=== PATIENT | male | born 1965 | race Caucasian/White ===

== ENCOUNTER → 2019-04-28 | Outpatient (CLI) | payer OTHER | LOC: SPEECH 10:08 → RAD 10:08 | DX: R13.10 Dysphagia, unspecified (principal) ==

== ENCOUNTER 2019-08-22 15:41 | Emergency (ER) | payer OTHER ==
[~2019-08-22] VITALS: Ht 172.7 cm; Wt 81.7 kg
[2019-08-22] MEDS ORDERED: ATORVASTATIN CA80 MG PO (15:52)
[2019-08-22] MEDS ORDERED: ASA81BEC PO (15:52)
[2019-08-22] MEDS ORDERED: PLAVIX 75 MG TA75 MG PO (15:53)
[2019-08-22] MEDS ORDERED: STOOL SOFTENER100 MG PO (15:53)
[2019-08-22] MEDS ORDERED: CARVEDILOL3.125 MG PO (15:53)
[2019-08-22] MEDS ORDERED: TRAZODONE HCL100 MG PO (15:55)
[2019-08-22] MEDS ORDERED: DEPAKOTE SPRIN125 MG PO (15:56)
[2019-08-22] MEDS ORDERED: SEROQUEL 100 M100 MG PO (15:56)
[2019-08-22] MEDS ORDERED: ZESTRIL2.5 MG PO (15:56)
[2019-08-22] MEDS ORDERED: NEURONTIN300 MG PO (15:56)
[2019-08-22 16:28] VITALS: BP 110/72
== END 2019-08-22 18:09 | disposition home or self-care (01) ==
LOC: ER 15:41
DX: S01.01XA Laceration without foreign body of scalp, initial encounter (principal); G40.909 Epilepsy, unspecified, not intractable, without status epilepticus; F31.9 Bipolar disorder, unspecified; W05.0XXA Fall from non-moving wheelchair, initial encounter; Y93.89 Activity, other specified; Y92.89 Other specified places as the place of occurrence of the external cause; Y99.8 Other external cause status

== ENCOUNTER 2020-02-04 14:02 | Inpatient (IN) | payer OTHER ==
[2020-02-04] VITALS (13 sets, daily range): BP systolic 109–140; BP diastolic 67–82
[~2020-02-04] VITALS: Ht 167.6 cm; Wt 71.0 kg
--- NOTE | ~2020-02-04 | EMS ---
[facility] [address] [place] [address] EMS Patient Care Report Name: JOHAN BLACKWOOD Room #: PRE M.R.#: [id number] Admission: Attend Phys: Discharge: Date of : 61 Report #: [id number] THIS REPORT FOR: //name// Report Transmitted: 02/04/2020 13:48 EMS Care Summary [place], [place]/[facility] Incident [id number] @ 02/04/2020 13:21 Incident Location [address] [facility] Patient JOHAN BLACKWOOD Male, 54 Years 1965 Patient Address [address] [place] [id number] Patient History Bipolar II Disorder,Mild cognitive impairment, Chief Complaint AMS Disposition Transported No Lights/[place] Dispatch Reason Sick Person Transported To [facility] Narrative DISPATCHED FOR A SIC PERSON. UPON ARRIVAL ON SCENE, WE WERE DIRECTED TO A SIDE DOOR AT A FACILITY WHICH LET US IN TO THE "COVID UNIT." WE WERE THEN DIRECTED TO THE PT ROOM. STAFF INFORMED E THAT THEY BELEIVED THE PT WAS COVID POSITIVE BECAUSE HE HAD BEEN I THE COVID UNIT AND HAD A COUGH YESTERDAY, AND NOW HE "JUST ISN'T ACTING HIMSELF." STAFF EXPLAINED THE PT IS NORMALLY AOx4 AND ABLE TO WALK AROUND. PT WAS FUND LYING IN A RIGHT LATERAL POSITION ON THE FLOOR. IT WAS NOTED THERE WAS A NRB MASK ON PT FACE, NOT CONNECTED TO O2. PT MASK WAS CONNECTED TO OUR O2 IMMEDIATELY AT 15 LPM. PT WAS UNRESPONSIVE TO ALL STIMULI INITIALLY. IT WAS NOTED THE PT SKIN WAS PALE AND CLAMMY WITH DISTAL CYANOSIS. [facility] [address] [place] [address] EMS Patient Care Report Name: JOHAN BLACKWOOD Room #: PRE ER M.R.#: [id number] Admission: Attend Phys: Discharge: Date of : 61 Report #: [id number] PT WAS MOVED TO [facility] AND SECURED WITHOUT ISSUE. AFTER A SHORT WHILE, PT OXYGEN SATURATION IMPROVED WELL HIS SKIN COLOR, HE ALSO BECAME RESPONSIVE TO PAINFUL STIMLI. PTMOVED TO AMBULANCE WITHOUT ISSUE. DURING TX, I ADMINISTERED A NARCAN CHALLENGE DUE TO PT MENTAL STATUS, RESPIRATORY DISTRESS AND PINPOINT PUPILS. SHORTLY AFTER, PT RR INCREASED AND HE BECAME RESPONSIVE TO VOCAL STIMULI, OPENNG HIS EYES AND LOOKING AT ME WHEN I SPOKE TO HIM. HE ALSO BEGAN MOANING AND MAKING NOISE. UPON ARRIVAL AT ER, PT MOVED TO BED 12 WITHOUT INCIDENT. Initial Vitals @13:56BP: 109/75, @13:41P: 62,SpO2: 80, @13:48P: 90,R: 12,BP: 115/80,Pain: 4/10,GCS: 15,CO: 0,SpO2: 100,Revised Trauma: 12, @13:55P: 91,R: 14,BP: 112/72,Pain: 4/10,GCS: 15,SpO2: 100,Revised Trauma: 12, @13:51P: 90,R: 55,SpO2: 100, @13:56P: 90,R: 9, @13:43P: 80,R: 12,BP: 113/51,Pain: 4/10,GCS: 15,Temp: 100.1F,Glucose: 108,SpO2: 88,Revised Trauma: 12, @13:38P: 80,R: 10,Pain: 4/10,GCS: 15, Assessments @13:38MENTAL:Unresponsive,SKIN:Diaphoresis,Cyanotic,Pale,HEENT:Eyes: Left Pupil: 2-mm,Eyes: Right Pupil: 2-mm,Eyes: Right: Non-Reactive,Eyes: Left: Non-Reactive,Head/Face: No Abnormalities,Neck/Airway: No Abnormalities,LUNG SOUNDS:General: No Abnormalities,Left Upper: No Abnormalities,Right Upper: No Abnormalities,Left Lower: No Abnormalities,Right Lower: No Abnormalities,ABDOMEN:General: No Abnormalities,Left Upper: No Abnormalities,Right Upper: No Abnormalities,Left Lower: No Abnormalities,Right Lower: No Abnormalities,PELVIS//GI:Incontinence,Pelvis GUOther,EXTREMITIES:Right Arm: Other,Left Leg: Other,Right Leg: Other,Left Arm: Other,Capillary Refill: Left Upper: 5 Sec,PULSE:Radial: 2+ Normal,NEURO:No Abnormalities,@13:55MENTAL:SKIN:HEENT:Eyes: Left Pupil: 3-mm,Eyes: Right Pupil: 3-mm,Head/Face: No Abnormalities,Neck/Airway: No Abnormalities,LUNG SOUNDS:General: No Abnormalities,ABDOMEN:General: No Abnormalities,PELVIS//GI:Pelvis GUOther,Incontinence,EXTREMITIES:Capillary Refill: Right Upper: < 2 Sec,Left Arm: No Abnormalities,Right Arm: No Abnormalities,Left Leg: No Abnormalities,Right Leg: No Abnormalities,PULSE:Radial: 2+ Normal,NEURO:No Abnormalities, Impression Altered Mental Status Procedures @13:51Narcan - 2 Milligrams (mg) - IntranasalResponse: Improved@13:413-Lead ECGResponse: UnchangedSucceeded@13:39Oxygen FlowRate: 15 Device: Non [facility] [address] [place] [address] EMS Patient Care Report Name: JOHAN BLACKWOOD Room #: PRE Sergio.#: [id number] Admission: Attend Phys: Discharge: Date of : 61 Report #: [id number] Re-breather Mask (NRB) Response: UnchangedSucceeded@13:40StretcherResponse: Unchanged@13:38ALS AssessmentResponse: UnchangedSucceeded Timeline 13:18,Call Received 13:18,Dispatch Notified 13:21,Dispatched 13:24,En Route 13:28,On Scene 13:38,At Patient 13:38,ALS Assessment,Response: UnchangedSucceeded, 13:38,BP: / M,PULSE: 80,RR: 10 R,SPO2: Ox,ETCO2: ,BG: ,PAIN: 4,GCS: 15, 13:39,Oxygen FlowRate: 15 Device: Non Re-breather Mask (NRB) Response: UnchangedSucceeded, 13:40,Stretcher,Response: Unchanged 13:41,3-Lead ECG,Response: UnchangedSucceeded, 13:41,BP: / M,PULSE: 62,RR: R,SPO2: 80 Ox,ETCO2: ,BG: ,PAIN: ,GCS: , 13:43,BP: 113/51 M,PULSE: 80,RR: 12 R,SPO2: 88 Ox,ETCO2: ,B,PAIN: 4,GCS: 15, 13:47,Depart Scene 13:48,BP: 115/80 M,PULSE: 90,RR: 12 R,SPO2: 100 Ox,ETCO2: ,BG: ,PAIN: 4,GCS: 15, 13:51,Narcan - 2 Milligrams (mg) - Intranasal,Response: Improved 13:51,BP: / M,PULSE: 90,RR: 55 R,SPO2: 100 Ox,ETCO2: ,BG: ,PAIN: ,GCS: , 13:55,BP: 112/72 M,PULSE: 91,RR: 14 R,SPO2: 100 Ox,ETCO2: ,BG: ,PAIN: 4,GCS: 15, 13:56,BP: / M,PULSE: 90,RR: 9 R,SPO2: Ox,ETCO2: ,BG: ,PAIN: ,GCS: , 13:56,BP: 109/75 M,PULSE: ,RR: R,SPO2: Ox,ETCO2: ,BG: ,PAIN: ,GCS: , 13:56,At Destination 14:10,Call Closed Disclaimer v1.1 Copyright 2020 [employer] This EMS Care Summary contains data elements from the applicable legal record (which may be displayed differently). It is designed to provide pertinent information for the following purposes: continuity of care, clinical quality, and state data reporting. The complete legal record is available to ED staff and administrators of the receiving hospital in [employer]'s Patient Tracker. All data is provided "as is."
[~2020-02-04 14:02] MED LIST: ASA81BEC PO; ATORVASTATIN CA80 MG PO; CARVEDILOL3.125 MG PO; DEPAKOTE SPRIN125 MG PO; NEURONTIN300 MG PO; PLAVIX 75 MG TA75 MG PO; SEROQUEL 100 M100 MG PO; STOOL SOFTENER100 MG PO; TRAZODONE HCL100 MG PO; ZESTRIL2.5 MG PO
[2020-02-04 14:42] LABS: HCO3 29.8 mmol/L (22.0-26.0); PCO2 36.4 mmHg (35.0-45.0); PO2 49.9 mmHg (80.0-100.0); pH 7.531 (7.360-7.450); sO2 89.5 % (92.0-98.0)
--- NOTE | 2020-02-04 15:51 | EKG ---
[facility] [address] ELECTROCARDIOGRAM REPORT Name: JOHAN BLACKWOOD Room #: [facility].#: [id number] Admission: 02/04/20 Attend Phys: Discharge: Date of : 61 Report #: [id number] THIS REPORT FOR: cc: Jewel Paul Eric DO Couchonnal, Luis F. MD ~ THIS REPORT FOR: //name// [facility] ED Test Date: 2020-02-04 Test Time: 15:35:47 Pat Name: JOHAN BLACKWOOD Department: Room: Gender: Dormitory Maid: [facility] : 1965 Requested By: Shoaib Guardado Order Number: [id number] MD: Gustabo Warner Measurements Intervals [place] Rate: 97 P: 54 MS: 119 QRS: 47 QRSD: 79 T: 4 QT: 314 QTc: 399 Interpretive Statements Sinus rhythm Borderline short MS interval Minimal ST depression, diffuse leads Baseline wander in lead(s) V3,V4 No previous ECG available for comparison Electronically Signed On 02-04-2020 15:51:10 CDT by Gustabo Warner [email or web address] <ELECTRONICALLY SIGNED> By: Gustabo Warner MD 02/04/20 1551 1535 1535 Gustabo Warner MD /EPI
[2020-02-04] MEDS ORDERED: NON-ASPIRIN325 MG PO (16:39)
[2020-02-04] MEDS ORDERED: MILK OF MA400 MG/5 M PO (16:40)
[2020-02-04 16:48] LABS: ABSOLUTE NEUTROPHILS 7.8 thou/uL (1.4-8.2); BASOPHILS 0.3 % (0.0-2.0); HEMATOCRIT 48.3 % (42.0-52.0); HEMOGLOBIN 15.8 gm/dL (14.0-18.0); LYMPHOCYTES 6.1 % (24.0-44.0); MCH 30.7 pg (26.0-34.0); MCHC 32.7 g/dL (28.0-37.0); MCV 93.9 fL (80.0-100.0); MONOCYTES 5.6 % (1.0-8.0); RBC 5.14 mil/uL (4.50-6.00); RDW 15.1 % (10.5-14.5); WBC 8.9 thou/uL (4.0-11.0)
[2020-02-04 16:57] LABS: ANION GAP 10 mmol/L (7-16); BUN 42 mg/dL (7-18); CALCIUM 8.6 mg/dL (8.5-10.1); CHLORIDE 111 mmol/L (98-107); CO2 31 mmol/L (21-32); CREATININE 1.4 mg/dL (0.7-1.3); GLUCOSE 108 mg/dL (74-106); POTASSIUM 4.4 mmol/L (3.5-5.1); SODIUM 152 mmol/L (136-145)
[2020-02-04 17:10] LABS: D-DIMER 2.55 ug/mLFEU (0.19-0.50); FIBRINOGEN 488.2 mg/dL (210-360)
[2020-02-04 17:12] LABS: ALBUMIN 3.1 g/dL (3.4-5.0); DIRECT BILIRUBIN 0.3 mg/dL (<0.1-0.2); SGOT 100 U/L (15-37); SGPT 47 U/L (30-65); TOTAL BILIRUBIN 0.8 mg/dL (0.2-1.0); TOTAL PROTEIN 8.9 g/dL (6.4-8.2); TROPONIN-I <0.06 ng/mL (<0.06)
[2020-02-04 17:23] LABS: PLATELET COUNT 77 thou/uL (150-400); PLATELET ESTIMATE DECREASED
--- NOTE | 2020-02-04 20:57 | NUR ---
PT ARRIVED IN ICU AT 1800, INTUBATED AND SEDATED ON PROPOFOL. SEDATION WAS TURNED OFF TO DETERMINE NEUROLOGIC STATUS. PT IS OBTUNDED, DOES NOT RESPOND TO PAINFUL STIMULI. REPORT WAS GIVEN THAT PT WAS A GCS OF 7 BUT ON MY ADMISSION ASSESSMENT HE WAS SCORED AT A 3. MERCHANDISING PROFESSOR WAS ASKED TO CALL [employer].PROPOFOL WAS NOT RESTARTED. PT DOES HAVE POSITIVE COUGH/GAG/CORNEAL. CONTINUES TO RIDE VENT. HEMODYNAMICALLY STABLE. SKIN IS MOTTLED, WITH MULTIPLE BRUISES AND SCABS ACROSS BODY. PT EDUCATED ON CONDITION AND POC.
[2020-02-04 21:57] LABS: BE(vivo) 2.4 mmol/L (-2 to +3); PCO2 29.7 mmHg (35.0-45.0); PO2 144.2 mmHg (80.0-100.0); pH 7.526 (7.360-7.450); sO2 99.1 % (92.0-98.0)
[2020-02-05] VITALS (27 sets, daily range): BP systolic 85–118; BP diastolic 51–77
[2020-02-05 05:46] LABS: BE(vivo) -0.9 mmol/L (-2 to +3); HCO3 22.9 mmol/L (22.0-26.0); PCO2 35.6 mmHg (35.0-45.0); pH 7.426 (7.360-7.450); sO2 82.6 % (92.0-98.0)
[2020-02-05 05:47] LABS: PO2 45.2 mmHg (80.0-100.0)
[2020-02-05 06:05] LABS: BE(vivo) 2.9 mmol/L (-2 to +3); HCO3 27.4 mmol/L (22.0-26.0); PCO2 41.3 mmHg (35.0-45.0); PO2 78.3 mmHg (80.0-100.0); pH 7.439 (7.360-7.450)
[2020-02-05 06:18] LABS: ABSOLUTE NEUTROPHILS 8.4 thou/uL (1.4-8.2); BASOPHILS 0.1 % (0.0-2.0); HEMATOCRIT 45.4 % (42.0-52.0); HEMOGLOBIN 14.8 gm/dL (14.0-18.0); LYMPHOCYTES 7.7 % (24.0-44.0); MCH 30.7 pg (26.0-34.0); MCHC 32.5 g/dL (28.0-37.0); MCV 94.3 fL (80.0-100.0); MONOCYTES 7.5 % (1.0-8.0); PLATELET COUNT 66 thou/uL (150-400); POLYS 84.7 % (36.0-66.0); RBC 4.81 mil/uL (4.50-6.00); RDW 15.3 % (10.5-14.5); WBC 9.9 thou/uL (4.0-11.0)
[2020-02-05 06:58] LABS: CALCIUM 8.5 mg/dL (8.5-10.1); CREATININE 1.4 mg/dL (0.7-1.3); MAGNESIUM 2.8 mg/dL (1.8-2.4); POTASSIUM 3.7 mmol/L (3.5-5.1)
--- NOTE | 2020-02-05 08:05 | NUR ---
Assumed care at 1900. Pt initiatlly unresponsive, but with positive cough/gag. No sedation while on vent until about midnight when he became minimally responsive, but not agitated or moving extremities. By 0200 pt reaching for ETT and coughing against vent. Propofol gtt started and requiring 15 mcg/kg/min to tolerate vent. Rapid COVID positive, Dr. Castro and pt's sister notified. Pt's sister tearful and unsure of how to proceed with pt's care as he has been depressed and "tired" and is ready to "be with his mom". Emotional support given and offered to do facetime call. Assessments per documentation. Slowly progressing at this time.
[2020-02-05 10:09] LABS: URINE BILIRUBIN NEGATIVE (Negative); URINE BLOOD 1+ (Negative); URINE CLARITY CLEAR; URINE COLOR YELLOW; URINE GLUCOSE-RANDOM* NEGATIVE (Negative); URINE KETONES NEGATIVE (Negative); URINE LEUKOCYTES-REFLEX NEGATIVE (Negative); URINE NITRITE-REFLEX NEGATIVE (Negative); URINE PROTEIN (DIPSTICK) TRACE (Negative); URINE SPECIFIC GRAVITY 1.025 (1.005-1.035)
[2020-02-05 10:24] LABS: BACTERIA-REFLEX None Seen /HPF (None Seen); CRYSTALS None Seen /LPF (None Seen); SQUAMOUS 0-3 Few /LPF (0-3); URINE WBC-REFLEX None Seen /HPF (0-5)
--- NOTE | 2020-02-05 10:34 | NUR ---
Nutrition: REC initiate tube feeds due to NPO status day 2 on vent. REC start Vital HP to reach 55 mL/hr with current propofol demands.
--- NOTE | 2020-02-05 10:44 | NUR ---
chart review. unable to visit wit pt rt intubated, positive for covid. pt is from ltc at [facility]. pt has meals there, assistance with medication and adl's if needed. update provided to [facility] via phone call to don at [facility]. will cont following as needed for dc needs.
--- NOTE | 2020-02-05 11:43 | NUR ---
SPOKE WITH PATIENT'S SISTER/DPOA REGARDING UPDATE. FAMILY HAD QUESTIONS REGARDING DNR VS WITHDRAWAL OF PT CARE. REQUESTED DNR FOR PT AND CONSULT WITH PALLIATIVE CARE/HOSPICE PROVIDER. PHYSICIAN NOTIFIED OF FAMILY REQUESTS. PT FAMILY PLAN TO DISCUSS OPTIONS FOR PT AND NOTIFY HOSPITAL STAFF.
--- NOTE | 2020-02-05 16:17 | NUR ---
RISK, BENEFITS, AND ALTERNATIVE TREATMENT DISCUSSED WITH DPOA. TEACHING GIVEN RELATED TO POSSIBLE COMPLICATIONS SUCH BLEEDING, INFECTION, CLOT, OR VESSEL PERFORATION. INSTRUCTION GIVEN RELATED TO CLABSI PREVENTION WITH LITERATURE PROVIDED. DPOA VOICES UNDERSTANDING AND CONSENT OBTAINED. [facility] TRIPLE LUMEN CENTRAL LINE CATHETER PLACED TO [facility]. ONE STICK AND NO COMPLICATIONS. PATIENT TOLERATED WELL. TIP OF CENTRAL CATHETER VERIFIED DISTAL SVC PER CHEST XRAY. RN ALEX FARIA RN NOTIFIED OKAY TO USE. LENGHT OF CATHETER =25CM. EXTERNAL =7CM. V.O.=14%.
[2020-02-06] VITALS (25 sets, daily range): BP systolic 85–122; BP diastolic 45–78
[2020-02-06 04:06] LABS: GLYCOHEMOGLOBIN (HGB A1C) 5.6 % (4.8-5.6)
[2020-02-06 05:36] LABS: CALCIUM 8.6 mg/dL (8.5-10.1); POTASSIUM 4.4 mmol/L (3.5-5.1)
[2020-02-06 05:44] LABS: CREATININE 3.7 mg/dL (0.7-1.3)
--- NOTE | 2020-02-06 07:22 | NUR ---
ASSESSMENT DOCUMENTED.PT REMAINS INTUBATED AND MODERATELY SEDATED,TOLERATING.BLOOD PRESSURE SOFT WITH MAP>60.IVF ORDERED.PT MOVES EXTREMITIES BILATERALLY AT TIMES.NO SIGNS OF DISTRESS NOTED.FIGUEROA DD DARK YELLOW CLOUDY URINE.FAIR AMOUT OF UO.POC IS DISCUSS WITH FAMILY ABOUT PALLIATIVE CARE TODAY.WILL CONT TO MONITOR PER POC.
--- NOTE | 2020-02-06 14:32 | NUR ---
cont to be intubated, tube feeding for nutritional support. from [facility] for rehabilitation. no anticipated dc over the weekend. will cont following as needed for dc needs.
[2020-02-06 16:00] LABS: BE(vivo) 3.2 mmol/L (-2 to +3); HCO3 27.8 mmol/L (22.0-26.0); PCO2 42.4 mmHg (35.0-45.0); PO2 109.1 mmHg (80.0-100.0); pH 7.435 (7.360-7.450); sO2 98.1 % (92.0-98.0)
--- NOTE | 2020-02-06 16:01 | NUR ---
ASSUMED CARE AT 0700. CENTRAL LINE DRESSING CHANGED. CPAP TRIAL STARTED @ 1500. PATIENT LASTED 45 MINUTES PER RESPIRATORY. HAD DECREASED MINUTE VENTILATION. SPOKE TO SISTER AND UPDATED AND EDUCATED HER ON PATIENT'S CONDITION. NO DECISION HAS BEEN MADE REGARDING PALLIATIVE CARE. PATIENT MOVES ALL EXTREMITIES, COUGHS AND GAGS, GRIMACES TO PAIN, AND DOES NOT FOLLOW COMMANDS. SEDATION VACATION RESULTED IN TACHYPNEA, RESTLESSNESS, AND AGITATION IN PATIENT. VENTILATOR SETTINGS UNCHANGED. RESTRAINTS CHECKED. PATIENT AND FAMILY UPDATED AND EDUCATED ON PLAN OF CARE. PATIENT PROGRESSING TOWARDS THE PLAN OF CARE. AFEBRILE. NO BM. UOP ADEQUATE HOWEVER IT IS TEA-COLORED/RED WITH SEDIMENT AND CLOTS PRESENT.
[2020-02-07] VITALS (23 sets, daily range): BP systolic 96–147; BP diastolic 59–89
--- NOTE | 2020-02-07 05:29 | NUR ---
ASSESSMENT DOCUMENTED.PT REMAINS ON VENT.ON LIGHT SEDATION.PT MOVES VIMAL EXTREMITIES BILATERALLY INTERMITTENTLY.RESPONDS TO PAINFUL STIMULI.AFEBRILE.SINUS JOEY ON SUPERVISOR SHRIMP POND.VSS.FIGUEROA DD,CLOUDY URINE W/SEDIMENTS.IVF PER ORDERS.SISTER CALLED LAST NOC, UPDATED WITH PT STATUS/POC.NO CONCERNS WERE VOICED.WILL CONT WITH POC.
[2020-02-07 05:52] LABS: HEMATOCRIT 38.9 % (42.0-52.0); MCH 30.7 pg (26.0-34.0); MCHC 33.3 g/dL (28.0-37.0); MCV 92.2 fL (80.0-100.0); RBC 4.22 mil/uL (4.50-6.00); RDW 14.9 % (10.5-14.5); WBC 7.7 thou/uL (4.0-11.0)
[2020-02-07 05:54] LABS: CALCIUM 7.8 mg/dL (8.5-10.1); POTASSIUM 3.5 mmol/L (3.5-5.1)
--- NOTE | 2020-02-07 10:06 | NUR ---
ASSUMED CARE AT 0700, ASSESSMENT AND VITAL SIGNS COMPLETED PER ICU PROTOCOL. RN WILL CONTINUE TO MONITOR AND FOLLOW POC.
[2020-02-08] VITALS (23 sets, daily range): BP systolic 109–145; BP diastolic 52–96
--- NOTE | 2020-02-08 02:58 | NUR ---
PT REMAINS ON PROPOFOL DRIP. AWAKENS BRIEFLY WITH TURNS AND BATH THEN BACK TO SLEEP QUICKLY. VSS. AFEBRILE. RESPIRATIONS UNLABORED ON CURRENT VENTILATOR SETTINGS. BS COARSE AT BASES. SUCTIONING MODERATE AMTS OF PICKARD COLORED SPUTUM. UO WNL BUT URINE IS PINK TINGED WITH SEDIMENT NOTED. CONTINUING ABX. ORDERED. IV FLUIDS INFUSING WITHOUT DIFFICULTY TO RIJ. CENTRAL LINE DRESSING CHANGED DUE TO DRESSING CAME LOOSE.REPOSITIONING PT Q 2 HRS. NO SKIN BREAKDOWN NOTED. WILL CONTINUE TO MONITOR PT FOR CHANGES.
[2020-02-08 06:18] LABS: HEMATOCRIT 40.9 % (42.0-52.0); HEMOGLOBIN 13.5 gm/dL (14.0-18.0); MCH 30.4 pg (26.0-34.0); MCV 92.1 fL (80.0-100.0); RBC 4.44 mil/uL (4.50-6.00); RDW 14.8 % (10.5-14.5); WBC 13.8 thou/uL (4.0-11.0)
[2020-02-08 06:38] LABS: CALCIUM 7.6 mg/dL (8.5-10.1); CREATININE 0.9 mg/dL (0.7-1.3); POTASSIUM 3.4 mmol/L (3.5-5.1)
--- NOTE | 2020-02-08 07:03 | NUR ---
PT TOLERATING FIO2 AT 40%N VENTILATOR. NO S/S DISTRESS PRESENTLY.
--- NOTE | 2020-02-08 09:36 | NUR ---
ASSUMED CARE AT 0700, ASSESSMENT AND VITAL SIGNS COMPLETED PER ICU PROTOCOL. RN WILL CONTINUE TO MONITOR.
[2020-02-09] VITALS (15 sets, daily range): BP systolic 83–135; BP diastolic 45–85
[2020-02-09 07:18] LABS: HEMATOCRIT 40.3 % (42.0-52.0); HEMOGLOBIN 13.2 gm/dL (14.0-18.0); MCH 30.4 pg (26.0-34.0); MCHC 32.8 g/dL (28.0-37.0); MCV 92.7 fL (80.0-100.0); RBC 4.35 mil/uL (4.50-6.00); RDW 14.6 % (10.5-14.5); WBC 13.5 thou/uL (4.0-11.0)
[2020-02-09 07:45] LABS: CREATININE 0.8 mg/dL (0.7-1.3); POTASSIUM 3.4 mmol/L (3.5-5.1)
--- NOTE | 2020-02-09 08:20 | NUR ---
Pt will awaken with sedation vacation, does not follow commands, raises hands to ett. Will not open eyes, grimaces with oral care and suctioning. 02sat wnl. ls -diminished. no resp distress. Cpap trial this am. progressing toward goals
[2020-02-09 08:46] LABS: BE(vivo) 2.8 mmol/L (-2 to +3); HCO3 25.5 mmol/L (22.0-26.0); PCO2 33.1 mmHg (35.0-45.0); PO2 133.5 mmHg (80.0-100.0); pH 7.504 (7.360-7.450); sO2 98.9 % (92.0-98.0)
--- NOTE | 2020-02-09 11:47 | NUR ---
ASSUMED CARE OF PT AT 0645. PLAN FOR CPAP AND POSSIBLE EXTUBATION. CPAP AT 0745. PROPOFOL OFF AT 0900. EXTUBATE AT 1150. DC RESTRAINTS
[2020-02-10] VITALS (7 sets, daily range): BP systolic 85–104; BP diastolic 38–71
--- NOTE | 2020-02-10 08:00 | NUR ---
PT SLEPT OFF AND ON. RESTLESS WHEN AWAKE WORKING TO REMOVE MEDICAL EQUIPMENT. SPOT CHECK 02SAT -93% ON RA. CONGESTED COUGH.QUESTIONABLE SLEEP APNEA WHILE SLEEPIN PER MONITOR BRADYCARIA, ET LOW HR. AWAKENS SELF AND VITALS RETURN TO WNL. CONT PLAN OF CARE.PROGRESSING TOWARD GOALS. NO RESTRAINTS PLACED DESPITE REMOVING THERAPIES NOT TO INCREASE AGITATION. WILL SPEAK DR IN REGARDD TO HOME MEDS
[2020-02-10 08:02] LABS: HEMATOCRIT 34.5 % (42.0-52.0); HEMOGLOBIN 11.5 gm/dL (14.0-18.0); MCH 30.5 pg (26.0-34.0); MCHC 33.4 g/dL (28.0-37.0); MCV 91.5 fL (80.0-100.0); RBC 3.77 mil/uL (4.50-6.00); RDW 14.6 % (10.5-14.5); WBC 11.7 thou/uL (4.0-11.0)
[2020-02-10 08:05] LABS: CALCIUM 7.9 mg/dL (8.5-10.1); CREATININE 0.8 mg/dL (0.7-1.3); POTASSIUM 3.4 mmol/L (3.5-5.1)
--- NOTE | 2020-02-10 09:39 | NUR ---
INSTRUCT PT TO BE TRANSFERRED TO [address] [place] [address] MED/SURG ENHANCED ISOLATION PRECAUTIONS.
--- NOTE | 2020-02-10 10:49 | NUR ---
noted per chart, pt extubated yesterday. o2 3Lnc. possible able to transfer out of icu. will cont following as needed for dc needs. [facility] to be updated today by cm team.
--- NOTE | 2020-02-10 17:52 | NUR ---
PT WILL HAVE SWALLOW EVALUATION IN AM. DR. LORA TO START PSYCH MEDICATION THIS EVENING. PT CONTINUES TO TRY AND TAKE OXYGEN AND BLOOD PRESSURE CUFF OFF. PT SATING 92% ON RA. PT PROGRESSING TOWARDS GOALS.
--- NOTE | 2020-02-10 18:48 | NUR ---
ASSESS SWALLOWING. PT ABLE TO TOLERATE CRUSHED UP PILLS IN THICKENED CLEAR LIQUID. GAVE PT PSYCH MEDICATION EARLY PATIENT WAS GETTING RESTLESS.
[2020-02-11] VITALS (13 sets, daily range): BP systolic 95–128; BP diastolic 25–84
--- NOTE | 2020-02-11 05:34 | NUR ---
ASSESSMENT DOCUMENTED.PT RESTED WELL THROUGH THE NIGHT W/O ACUTE DISTRESS.PT AWAKE,MAKES INCOMPREHENSIBLE SOUNDS AND YELLS DURING CARE.SINUS JOEY ON THE MONITOR.ON O2 AT 2LITERS PNC,SATS>92%.FIGUEROA DD LARGE AMOUNT OF URINE/W SEDIMENT.TOLERATED BED BATH.ORAL CARE GIVEN.POC IS TO TRANSFER TO [facility].
--- NOTE | 2020-02-11 11:22 | NUR ---
Nutrition: Pt without nutrition x [address] eval post extubation. REC either Dobhoff placement and start Jevity 1.5 goal 55 mL/hr OR change IVFs to Clinimix PPN at 100 mL/hr, add 250 mL 20% lipids daily til diet advance possible.
--- NOTE | 2020-02-11 16:08 | NUR ---
FAXED CLINICAL UPDATE TO [facility] RECEIVED CONFIRMATION AND LEFT MSG WITH ADM. DP TO FOLLOW.
--- NOTE | 2020-02-12 01:21 | NUR ---
PT MOVES SELF IN BED FROM SIDE TO SIDE. HAPPY TO SEE STAFF, SMILING. NO DISCERNABLE WORDS. AFEBRILE.02SAT 100 ON 2L. GOOD COUGH EFFORT; DID TAKE CRUSHED PILLS WITH APPLESAUCE. NO COUGH NOTED. UO ADEQUATE. STARTED TPN PER ORDERS THIS SHIFT. SPOKE WITH PT SISTER LAST EVENING WITH UPDATE. CONT TO PROGRESS. CONT PLAN OF CARE
[2020-02-12 03:50] VITALS: BP 111/56
--- NOTE | 2020-02-12 04:07 | NUR ---
TRANSFER PT TO [facility], NO CHANGE IN ASSESSMENT. REPORT CALLED TO RN.
[2020-02-12 07:32] VITALS: BP 121/67
[2020-02-12 09:44] LABS: HEMATOCRIT 35.3 % (42.0-52.0); MCH 30.8 pg (26.0-34.0); MCHC 33.9 g/dL (28.0-37.0); MCV 90.7 fL (80.0-100.0); RBC 3.89 mil/uL (4.50-6.00); RDW 14.4 % (10.5-14.5); WBC 8.4 thou/uL (4.0-11.0)
[2020-02-12 09:53] LABS: CALCIUM 7.8 mg/dL (8.5-10.1); CREATININE 0.8 mg/dL (0.7-1.3)
--- NOTE | 2020-02-12 14:29 | NUR ---
ALICIA reviewed chart and spoke with nursing and attending physician. Pt was transferred to from ICU and is in Enhanced Isolation due to COVID-19. Pt is afebrile and on 2L of O2. Pt is on IV abx and IV steroids. ST ordered to evaluate pt. Pt would benefit from PT/OT evals when able to participate. Pt was admitted from [facility]. Pt with hx of bipolar disorder, dementia, CVA, epilepsy. SW placed call to pt's room. No answer. ALICIA spoke with pt's sister, Sonia, via phone. Introduced role of SW. Sonia states that pt has lived at [facility] for about a year. Pt is long filler cigar roller machine care, as he [place]. Pt is normally independent with ambulation. Pt does have a w/c at [facility] for staff to use to transport pt if needed. Pt was in a facility in [place] prior to moving to [facility]. Pt's sister states that prior to COVID-19 pandemic, she was taking pt home with her over the weekends to spend time with family. Family has tried to Face Time pt at [facility], but has had difficulty arranging the Face Time visits. SW explained that has a tablet and can assist with coordination if needed. Pt's sister states that she does not want pt to return to [facility] upon discharge. Pt's family is not happy with the level of care they are providing and the lack of communication. Pt's family feel that they are able to manage pt's care needs in the home setting. Pt has good family support and would be able to take care of pt. ALICIA discussed isolation precautions should pt continue to test positive, as well as in-home care provided by [place]. Pt's sister to discuss with Medicaid about having pt evaluated for in-home care. Pt's disability check goes to the facility. Pt's sister also interested in possible inpt acute rehab prior to returning to the home setting if pt able to be admitted pending COVID status. Pt's sister has discussed her concerns with [facility]. Pt's sister will further discuss discharge plan with family and will see pt's level of care needs when it gets closer to discharge. ALICIA is following to assist as needed with discharge planning.
[2020-02-12 16:25] VITALS: BP 103/67
[2020-02-12 19:15] VITALS: BP 97/51
--- NOTE | 2020-02-12 19:34 | NUR ---
PT RESTED IN ROOM THROUGH THE DAY. HE DOES NOT SEEM TO BE IN PAIN. CONT ON ABT AND NO ADVERSE EFFECTS NOTED. RESPIRATIONS ARE NON LABORED. FIGUEROA IN PLACE. WILL CONT WITH PLAN OF CARE.
[2020-02-13 05:43] VITALS: BP 100/50
[2020-02-13 06:35] LABS: HEMATOCRIT 36.7 % (42.0-52.0); HEMOGLOBIN 12.2 gm/dL (14.0-18.0); MCH 30.6 pg (26.0-34.0); MCHC 33.4 g/dL (28.0-37.0); MCV 91.6 fL (80.0-100.0); RDW 15.2 % (10.5-14.5); WBC 10.8 thou/uL (4.0-11.0)
[2020-02-13 06:40] LABS: CALCIUM 7.7 mg/dL (8.5-10.1); CREATININE 0.8 mg/dL (0.7-1.3); MAGNESIUM 1.9 mg/dL (1.8-2.4); POTASSIUM 3.5 mmol/L (3.5-5.1)
--- NOTE | 2020-02-13 08:32 | NUR ---
PPN providing minimal nutrition. If aggressive care to continue for nutrition recommend placement of dobhoff and start TF of jevity 1.5 at goal 55ml/hr
[2020-02-13 10:52] VITALS: BP 97/63
[2020-02-13 10:59] LABS: BE(vivo) 2.6 mmol/L (-2 to +3); HCO3 24.1 mmol/L (22.0-26.0); PCO2 28.6 mmHg (35.0-45.0); PO2 62.7 mmHg (80.0-100.0); pH 7.543 (7.360-7.450); sO2 94.7 % (92.0-98.0)
[2020-02-13 14:11] LABS: ALBUMIN 1.8 g/dL (3.4-5.0); DIRECT BILIRUBIN 0.1 mg/dL (<0.1-0.2); TOTAL BILIRUBIN 0.5 mg/dL (0.2-1.0); TOTAL PROTEIN 5.9 g/dL (6.4-8.2)
--- NOTE | 2020-02-13 14:45 | NUR ---
SW reviewed chart and spoke with nursing. Pt is in Enhanced isolation due to COVID-19. Code Stroke called earlier today. Neuro consulted. Pt was unresponsive. No weekend discharge planned. Therapy to be ordered when pt is able to participate. SW is following to assist as needed with discharge planning.
--- NOTE | 2020-02-13 18:29 | NUR ---
PATIENT WAS NOTED TO BE LETHERGIC THIS AM. CODE STROKE ACTIVATED BUT WORK UP DID NOT SHOW HE HAD ANY STROKE. LATER THIS AFTERNOON PATIENT BEGAN TO WAKE UP AND BEGAN TO MOVE IN BED PER HIS USUAL SELF. OXYGEN SATS REMAINS GOOD AT ROOM AIR. WILL CONT WITH PLAN OF CARE.
[2020-02-13 20:25] VITALS: BP 122/77
--- NOTE | 2020-02-14 02:11 | NUR ---
ASSUMED CARE OF PT FROM DAY SHIFT , PT VERY RESTLESS AND AGITATED , LEG WERE BEDRAIL , HOSPITAL GOWN OFF. LINEN CHANGES AND ANISA CARE GIVEN PT REPOSTION IN BED, BED ALARM ON. WILL CONINTUE TO MONITOR AND REPORT CHANGES. FIGUEROA INTACT WITH CLEAR YELLOW URINE.
[2020-02-14 03:45] VITALS: BP 112/81
[2020-02-14 08:53] VITALS: BP 1408/67
[2020-02-14 13:26] LABS: TSH 1.288 uIU/mL (0.358-3.740)
[2020-02-14 15:18] VITALS: BP 106/74
--- NOTE | 2020-02-14 19:33 | NUR ---
PATIENT HAD A BED TODAY AFTER HAVING EXTENSIVE BOWEL MOVEMENT. HE IS MUCH MORE AWAKE. ATE DINNER 75% WITH MINOR FATIGUE NOTED. HE KEEPS MOVING ABOUT IN BED. WILL CONT WITH PLAN OF CARE.
[2020-02-15 04:01] VITALS: BP 128/65
--- NOTE | 2020-02-15 04:34 | NUR ---
VSS-AFEBRILE. AWAKE AND RESTLESS MOST OF SHIFT. TURNED AND ORAL CARE EVERY TWO HOURS FOR COMFORT. FIGUEROA CATHETER DRAINING ADEQUATE AMOUNTS OF DARK, YELLOW URINE TO DEPENDENT DRAINAGE BAG. REMAINS ON ROOM AIR WITH SAO2 >92%. CAN BE IMPULSIVE AND PULL ON IV LINES, WAS ABLE TO PLACE PILLOWS AND BLANKETS OVER LINES TO PREVENT ANY PULLING. FALL PRECAUTIONS IN PLACE.
[2020-02-15 08:30] VITALS: BP 108/56
[2020-02-15 15:28] VITALS: BP 111/74
--- NOTE | 2020-02-15 18:30 | NUR ---
ASSUMED PATIENT CARE AT 0700. AWAKE. NONVERBLE. ABLE TO HAVE 50-60% EACH MEALS. AFEBEILR. VSS. PROGRESSING TOWARDS POC GOALS.
[2020-02-15 20:18] VITALS: BP 132/81
[2020-02-16 00:37] VITALS: BP 104/66
--- NOTE | 2020-02-16 00:47 | NUR ---
PT CONFUSED. VSS AFEBRILE. PT PULLED OU IV 3LRIJ AROUND 2350. WILL NOTIFY DR. PT HAS BEEN EATING WELL ON DAY SHIFT ACCORDING TO REPORT. BED DOWN CALLLIGHT IN REACH. BED ALARM ON.
--- NOTE | 2020-02-16 02:24 | NUR ---
NOTIFIED MAGGY LEZAMA FORESTRY TECHNICAL OFFICER PT PULLED OUT CENTRAL LINE. PLACED IN SOFT WRIST RESTAINTS DUE TO HE BEGAN TOO DISROBE AND PULL AT FIGUEROA.
--- NOTE | 2020-02-16 06:21 | NUR ---
PT STILL CONFUSED. PULLS AT LINES. SAMSNO ROLLINS PUT IN A REQUEST FOR PICC LINE PLACEMENT TODAY SO PT CAN CONTINUE PPN. NYSTATIN ORDERED FOR GROIN RASH.
[2020-02-16 08:00] VITALS: BP 133/77
[2020-02-16 09:37] LABS: HEMATOCRIT 40.4 % (42.0-52.0); HEMOGLOBIN 13.3 gm/dL (14.0-18.0); MCH 30.3 pg (26.0-34.0); MCV 91.8 fL (80.0-100.0); RBC 4.4 mil/uL (4.50-6.00); RDW 14.5 % (10.5-14.5); WBC 11.1 thou/uL (4.0-11.0)
[2020-02-16 10:01] LABS: CALCIUM 8.6 mg/dL (8.5-10.1); CREATININE 0.8 mg/dL (0.7-1.3); MAGNESIUM 2.1 mg/dL (1.8-2.4); POTASSIUM 3.9 mmol/L (3.5-5.1)
--- NOTE | 2020-02-16 15:15 | NUR ---
ALICIA reviewed chart and spoke with nursing and attending physician. Pt is in Enhanced Isolation due to COVID-19. Pt is afebrile and not requiring O2. PT/OT ordered today to evaluate pt. Pt is on a pureed diet and nectar thickened liquids. ALICIA spoke with pt's sister, Sonia, via phone to discuss discharge plan. Code Stroke called on Sunday, 02/12. Neurology consulted. Pt was not able to follow commands with OT this morning. Awaiting PT eval. ALICIA explained the level of care that pt is requiring at this time. Pt's sister does not want pt to return to [facility]. She will take him home if needed. ALICIA discussed alternate option for LTC placement: [facility]. Pt's sister to review the facility's website and survey ratings. ALICIA updated attending physician. ALICIA is following to assist as needed with discharge planning.
[2020-02-16 16:19] VITALS: BP 126/72
--- NOTE | 2020-02-16 17:44 | NUR ---
ASSUMED PATIENT CARE AT 0700. AWAKE, NOT FOLLOW COMMAND. RESTLESS. GOOD APPETITE. PROGRESSING TOWARDS POC GOALS.
[2020-02-16 19:38] VITALS: BP 179/70
[2020-02-16 21:47] VITALS: BP 122/75
--- NOTE | 2020-02-16 23:43 | NUR ---
PT RESTING QUIETLY PRESENTLY. VSS. NO S/S DISTRESS. IVFS INFUSING WITHOUT DIFFICULTY NICK. BED ALARM ON . BED DOWN LOW LOCKED POSITION.
[2020-02-17 04:32] VITALS: BP 130/84
[2020-02-17 05:34] LABS: HEMATOCRIT 37.2 % (42.0-52.0); HEMOGLOBIN 12.2 gm/dL (14.0-18.0); MCH 30.2 pg (26.0-34.0); MCHC 32.9 g/dL (28.0-37.0); RBC 4.05 mil/uL (4.50-6.00); RDW 14.7 % (10.5-14.5); WBC 9.1 thou/uL (4.0-11.0)
[2020-02-17 05:57] LABS: CALCIUM 8.1 mg/dL (8.5-10.1); CREATININE 0.8 mg/dL (0.7-1.3); MAGNESIUM 1.9 mg/dL (1.8-2.4); POTASSIUM 3.5 mmol/L (3.5-5.1)
--- NOTE | 2020-02-17 06:22 | NUR ---
PT PROGRESSING TOWARDS D/C GOAL VSS AFEBRILE. NYSTATIN TO REDDENED GROIN LOOKS BETTER TODAY. MOISTURE BARRIER TO BUTTOCKS. SMALL STOOL NOTED.BED DOWN CALL LIGHT IN REACH. NO S/S DISTRESS. BS 70 YOGURT GIVEN.
[2020-02-17 08:10] VITALS: BP 147/98
--- NOTE | 2020-02-17 15:12 | NUR ---
PT FROM [facility] AND PLANS TO D/C TO [facility] AT END OF THE WEEK...
--- NOTE | 2020-02-17 16:38 | NUR ---
ALICIA reviewed chart and spoke with nursing and attending physician. Pt is in Enhanced Isolation due to COVID-19. Pt is afebrile and not requiring O2. SW reqeusted attending physician speak with pt's sister, Sonia, regarding recommendation for post-acute placement. ALICIA spoke with Sonia, via phone to follow up. Pt's sister requests referral to be sent to [facility], as they accept COVID positive pts. SW explained that pt would not receive skilled therapy as he [place]. Pt's sister verbalized understanding and is hopeful that pt will improve and he can go home with family. ALICIA faxed referral to [facility] for review. Notified [facility] post-acute liaison. ALICIA is following to assist as needed with discharge planning.
[2020-02-17 19:20] VITALS: BP 110/39
[2020-02-18 05:11] VITALS: BP 121/82
--- NOTE | 2020-02-18 06:07 | NUR ---
ASSUMED CARE AT 1900, ASSESSMENT COMPLETED. PT NONVERBAL, NO SIGNS/SYMPTOMS OF RESP DISTRESS OR PAIN. PT FIDGETY, PULLING COVERS OVER HIS HEAD, TAKING GOWN OFF, THROWING PILLOWS ON THE FLOOR. IVF INFUSING OVERNIGHT. TOOK PILLS CRUSHED IN APPLESAUCE WITHOUT ISSUE. CLEANED UNDER FINGERNAILS AND PT'S EARS, TOLERATED WITHOUT ISSUE. NO OTHER CONCERNS, WILL CONTINUE TO MONITOR.
[2020-02-18 08:40] VITALS: BP 141/71
--- NOTE | 2020-02-18 14:38 | NUR ---
ALICIA reviewed chart and spoke with nursing and attending physician. Pt is in Enhanced Isolation due to COVID-19. Pt is afebrile and not requiring O2. ALICIA spoke with [facility] liaison earlier today. Clinical team is reviewing pt's info. [facility] has requested pt's DA-124 ppwk from [facility] and have heard back from [facility]. [facility] will need to ppwk in order to accept pt. ALICIA faxed nursing notes for review. ALICIA left voice message for pt's sister, Sonia, to provide update. ALICIA is following to assist as needed with discharge planning.
[2020-02-18 17:46] VITALS: BP 118/68
[2020-02-18 20:32] VITALS: BP 118/68
[2020-02-19 04:23] VITALS: BP 123/85
--- NOTE | 2020-02-19 05:34 | NUR ---
ASSUMED CARE AT 1900. PT IN NO RESP DISTRESS OR PAIN. TOOK HS PILLS IN [place] WITHOUT ISSUE. SMALL SOFT BM OVERNIGHT. GROIN RASH LESS RED THAN PREVIOUS SHIFT, BUT NOTED TO HAVE SOME YEASTY REDNESS IN RIGHT ARMPIT WELL. GAVE SPONGEBATH. IVF INFUSING, FIGUEROA DRAINING WELL. NO OTHER CONCERNS, WILL CONTINUE TO MONITOR.
[2020-02-19 07:30] VITALS: BP 127/84
[2020-02-19 15:32] VITALS: BP 120/80
--- NOTE | 2020-02-19 16:09 | NUR ---
ALICIA reviewed chart and spoke with nursing and attending physician. Pt remains in Enhanced Isolation due to COVID-19. Pt is afebrile and not requiring O2. Neuro progress note states that pt's sister may consider comfort care. Palliative care physician to be consulted to discuss plan of care. ALICIA spoke with Molly of [facility] post-acute liaison, who states they should be able to accept pt, pending DA124 ppwk from [facility]. Ppwk has been received. [place] [facility] post-acute liaison did visit with pt's sister, Sonia, to discuss admission. Pt's family may consider taking pt home with hospice. ALICIA is following to assist as needed with discharge planning.
[2020-02-19 20:30] VITALS: BP 125/78
--- NOTE | 2020-02-20 04:47 | NUR ---
ASSUMED CARE AT 1900, ASSESSMENT COMPLETED. HS MEDS GIVEN CRUSHED IN PUDDING. CONGESTED COUGH NOTED. PT RESTLESS IN BED, PULLING AT BEDDING. TRANSFERRED CARE AT 0100, PT IN STABLE CONDITION.
[2020-02-20 05:06] VITALS: BP 115/74
[2020-02-20 06:13] LABS: HEMOGLOBIN 12.5 gm/dL (14.0-18.0); MCH 30.5 pg (26.0-34.0); MCHC 32.9 g/dL (28.0-37.0); MCV 92.5 fL (80.0-100.0); RBC 4.11 mil/uL (4.50-6.00); RDW 15.2 % (10.5-14.5); WBC 14.3 thou/uL (4.0-11.0)
[2020-02-20 06:39] LABS: CALCIUM 8.1 mg/dL (8.5-10.1); CREATININE 0.8 mg/dL (0.7-1.3); POTASSIUM 3.4 mmol/L (3.5-5.1)
[2020-02-20 07:20] VITALS: BP 107/70
[2020-02-20 15:17] VITALS: BP 102/70
--- NOTE | 2020-02-20 15:49 | NUR ---
ALICIA reviewed chart and spoke with nursing and attending physician. Pt is in Enhanced Isolation due to COVID-19. Palliative care physician spoke with pt's sister regarding plan of care. Pt's sister is agreeable with pt going to [facility] with hospice. ALICIA spoke with [facility] post-acute liaison, who states they are able to accept pt from a clinical standpoint, but they need pt's DA-124 ppwk from [facility]. They have requested it several times from the facility. ALICIA spoke with pt's sister, Sonia, via phone to discuss discharge plan. Sonia is agreeable with pt going to [facility], but she does not want hospice at this time. Should pt's condition start to decline, they she will consider hospice. ALICIA updated [facility] liaison. ALICIA and [facility] liacody are working on DA-124 C ppwk. Should pt be able to discharge to [facility] over the weekend, their liaison, Adriane, will need to be contacted to coordinate. Chart will need to be copied. Finalized discharge orders/summary will need to be faxed when available. ALICIA is available to assist as needed with discharge planning. [facility]-- Liaison (Adriane): [phone]
--- NOTE | 2020-02-20 17:02 | NUR ---
PT REMAINS NON VERBAL, NO S/S DISTRESS NOTED. PT COOPERATIVE, SMILES AT STAFF FREQUENTLY. PT NEEDS ASSIST WITH FEEDING AND FLUIDS. CONSUMED APPROX 50% BREAKFAST & 20% LUNCH. MOVES SELF AROUND IN BED OFTEN, BUT DOES NOT MAKE ATTEMPTS TO LEAVE BED. FALL PRECAUTIONS IN PLACE.
[2020-02-20 20:37] VITALS: BP 114/75
[2020-02-21 04:43] VITALS: BP 136/85
--- NOTE | 2020-02-21 05:28 | NUR ---
loose congested cough, swallows phlegm. continues to be active with grabbing a material and objects near his sight. non verbal, no attempt to speak. careplan reviewed.
[2020-02-21 08:21] VITALS: BP 109/73
[2020-02-21] MEDS ORDERED: CARBIDOPA-LEVO1 EAC9 PO (13:45)
[2020-02-21] MEDS ORDERED: NYSTATIN15 G1 TOP (13:46)
[2020-02-21] MEDS ORDERED: NAMENDA 5 MG TAB5 M1 PO (13:46)
--- NOTE | 2020-02-21 15:06 | NUR ---
SPOKE W/ [facility], PROVIDED UPDATE, BED AVAILALBE AT THE FACILITY AT THIS TIME. [facility] FAXED OVER, HOA CALLED BY THIS RN AND PROVIDED DETAILED REPORT OF CURRENT PT STATUS. LEFT A CALL BACK NUMBER FOR ANY CLARIFICATIONS. PT TO BE TRANSFERRED VIA [facility] AND EMS TRANSPORTATION. FORM DA-124 WAS REQUESTED BY [facility] BUT LATER CLARIFIED THAT PT WAS ORIGINALLY AT [facility], AND FORM TO BE RETRIEVED BY [facility]. NO CONCERNS FROM THE PT, ALL MEDICATIONS ADMINISTERED, PT TOLERATING PO WELL. NO ISSUES AT THIS TIME. CHART CURRENTLY BEING MADE BY [facility] [employer] TECHNICAL LEAD VIELKA. WILL CONTINUE TO FOLLOW AND UPDATE NEEDED
[2020-02-21 15:17] VITALS: BP 93/61
[2020-02-21 16:46] VITALS: BP 111/77
== END 2020-02-21 17:55 | DRG 870 ==
LOC: ER 14:02 → 3W 17:22 → EROBS 17:22 → ICU 17:30 → 3W 02-12 03:44
PROVIDERS: Emergency Medicine; Internal Medicine; Internal Medicine Pulmonary Disease; Nurse Practitioner; Psychiatry & Neurology Neurology; ADMIT Hospitalist; ATTEND Hospitalist
PROC: 5A1955Z Respiratory Ventilation, Greater than 96 Consecutive Hours (ICD-10-PCS; principal; 2020-02-04)
PROC: 0BH17EZ Insertion of Endotracheal Airway into Trachea, Via Natural or Artificial Opening (ICD-10-PCS; principal; 2020-02-04)
PROC: 02HV33Z Insertion of Infusion Device into Superior Vena Cava, Percutaneous Approach (ICD-10-PCS; 2020-02-05)
PROC: 5A09357 Assistance with Respiratory Ventilation, Less than 24 Consecutive Hours, Continuous Positive Airway Pressure (ICD-10-PCS; 2020-02-09)
DX: A41.89 Other specified sepsis (principal); U07.1 COVID-19; J96.01 Acute respiratory failure with hypoxia; J69.0 Pneumonitis due to inhalation of food and vomit; N17.0 Acute kidney failure with tubular necrosis; F03.91 Unspecified dementia, unspecified severity, with behavioral disturbance; E87.0 Hyperosmolality and hypernatremia; E87.1 Hypo-osmolality and hyponatremia; E44.0 Moderate protein-calorie malnutrition; F01.51 Vascular dementia, unspecified severity, with behavioral disturbance; G93.40 Encephalopathy, unspecified; F02.81 Dementia in other diseases classified elsewhere, unspecified severity, with behavioral disturbance; F31.9 Bipolar disorder, unspecified; G40.909 Epilepsy, unspecified, not intractable, without status epilepticus; E78.5 Hyperlipidemia, unspecified; I10 Essential (primary) hypertension; E86.0 Dehydration; D69.6 Thrombocytopenia, unspecified; G20 Parkinson's disease; R65.20 Severe sepsis without septic shock; Z66 Do not resuscitate; R13.10 Dysphagia, unspecified; Z79.82 Long term (current) use of aspirin; Z79.899 Other long term (current) drug therapy; Z86.73 Personal history of transient ischemic attack (TIA), and cerebral infarction without residual deficits; Z68.25 Body mass index [BMI] 25.0-25.9, adult; Z95.1 Presence of aortocoronary bypass graft
CPT/HCPCS: 10078; 10204; 10779

== ENCOUNTER → 2020-08-18 | Outpatient (CLI) | payer OTHER ==
[~2020-08-18] MED LIST changes: +CARBIDOPA-LEVO1 EAC9 PO; +MILK OF MA400 MG/5 M PO; +NAMENDA 5 MG TAB5 M1 PO; +NON-ASPIRIN325 MG PO; +NYSTATIN15 G1 TOP
== END ==
LOC: RAD 12:39
PROVIDERS: ATTEND Family Medicine
DX: R13.12 Dysphagia, oropharyngeal phase (principal)